=== PATIENT | male | born 1985 | race Caucasian/White ===

== ENCOUNTER 2016-08-15 09:16 | Emergency (ER) | payer BC, OTHER ==
[~2016-08-15 09:16] MED LIST: ACET50TA PO; ASPI325T5 PO; DOCU10ELUD PO; FLEX10TA2 PO; OXYC30TA4 PO; PERC7.5T12 PO
[2016-08-15] MEDS ORDERED: NS 1,000 ML IV ONE (09:45)
[2016-08-15] MEDS ORDERED: KETOROLAC 30 MG/ML VIAL (J1885) IV ONE (09:45)
[2016-08-15 09:52] LABS: BASO % 0.5 % (0.0-1.0); EOS # 0.2 K/mm3 (0.0-0.50); EOS % 2.2 % (0.0-3.0); LARGE UNSTAINED CELL # 0.1 K/mm3 (0.0-0.4); LARGE UNSTAINED CELL % 1.2 % (0.0-4.0); LYMPH # 1.5 K/mm3 (1.5-4.5); LYMPH % 20.3 % (24.0-44.0); MEAN CORPUSCULAR HEMOGLOBIN 31.1 pg (27.0-33.0); MEAN CORPUSCULAR VOLUME 88.8 fl (80.0-96.0); MONO # 0.4 K/mm3 (0.0-0.8); MONO % 4.8 % (0.0-5.0); NEUTROPHILS # 5.4 K/mm3 (1.8-7.7); NEUTROPHILS % 71.1 % (36.0-66.0); PLATELET COUNT, AUTOMATED 292 k/mm3 (150-450); RED CELL DISTRIBUTION WIDTH 12.8 % (11.5-14.5); WHITE BLOOD COUNT 7.6 K/mm3 (4.0-10.0)
[2016-08-15 10:12] LABS: ALBUMIN 3.5 GM/DL (3.2-5.2); ALBUMIN/GLOBULIN RATIO 0.95 (1.00-1.93); ALKALINE PHOSPHATASE 69 U/L (45-117); ALT/SGPT 85 U/L (12-78); ANION GAP 7 MEQ/L (8-16); AST/SGOT 33 U/L (15-37); BILIRUBIN,DIRECT 0.1 MG/DL (0.0-0.2); BILIRUBIN,TOTAL 0.7 MG/DL (0.2-1.0); BLOOD UREA NITROGEN 15 MG/DL (7-18); CARBON DIOXIDE LEVEL 26 MEQ/L (21-32); CHLORIDE LEVEL 108 MEQ/L (98-107); CREATININE FOR GFR 1.08 MG/DL (0.70-1.30); GLOMERULAR FILTRATION RATE > 60.0 (>60); GLUCOSE, FASTING 126 MG/DL (70-105); POTASSIUM SERUM 3.9 MEQ/L (3.5-5.1); SODIUM LEVEL 141 MEQ/L (136-145); TOTAL PROTEIN 7.2 GM/DL (6.4-8.2)
--- NOTE | 2016-08-15 10:53 | REP ---
CT abdomen pelvis without IV and oral contrast: There is a 5 mm calculus in the distal right ureter near the urinary bladder. There is mild right hydronephrosis. There are no right renal calculi. There are no renal or ureteral calculi on the left. There is no left hydronephrosis. There are no bladder calculi. The bladder is otherwise unremarkable. The visualized lung castillo are unremarkable. The unenhanced hepatic parenchyma is unremarkable. The gallbladder, pancreas and spleen are unremarkable. The adrenals, abdominal aorta, bowel and mesentery are unremarkable. Pelvis: The appendix has a normal appearance. The bladder is unremarkable. There is no adenopathy or ascites. The pelvic bowel loops are unremarkable. Impression: There is a 5 mm calculus in the distal right ureter near the bladder. There is moderate right hydronephrosis. Signed by Hair August MD 08/15/2016 10:44 A
[2016-08-15] MEDS ORDERED: ZOFR4TAB3 PO (11:24)
[2016-08-15] MEDS ORDERED: FLOM5CAP PO (11:24)
[2016-08-15] MEDS ORDERED: TAMSULOSIN 0.4 MG CAP PO ONE (11:30)
[2016-08-15 11:36] VITALS: BP 141/90
== END 2016-08-15 11:38 | disposition home or self-care (01) ==
LOC: M ED 09:59
DX: N20.1 Calculus of ureter (principal); Z88.7 Allergy status to serum and vaccine
CPT/HCPCS: 74176; 80048; 80076; 81001; 85025; 87086; 96361; 96374; 99284; J1885

== ENCOUNTER 2017-05-06 13:43 | Emergency (ER) | payer OTHER ==
[2017-05-06] MEDS: METOPROLOL TART 50 MG TAB PO ×2 (14:24)
[2017-05-06] MEDS: ASPIRIN 81 MG CHEW TABLET PO ×2 (14:25)
[2017-05-06] MEDS: NS 1,000 ML IV ×2 (14:25)
[2017-05-06] MEDS: MORPHINE 2 MG/ML 1ML SYRINGE (J2270) IV ×4 (14:25→15:20)
[2017-05-06 14:33] LABS: BASO % 0.3 % (0.0-1.0); EOS % 0.4 % (0.0-3.0); HEMATOCRIT 45.6 % (42.0-52.0); HEMOGLOBIN 16.3 g/dl (14.0-18.0); IMMATURE GRANULOCYTE % 0.4 % (0-3.0); LYMPH # 1.8 10^3/uL (1.5-4.5); LYMPH % 17.2 % (24.0-44.0); MEAN CORPUSCULAR HEMOGLOBIN 30.5 pg (27.0-33.0); MEAN CORPUSCULAR HGB CONC 35.7 g/dl (32.0-36.5); MEAN CORPUSCULAR VOLUME 85.2 fl (80.0-96.0); MONO # 0.8 10^3/uL (0.0-0.8); NEUTROPHILS # 7.7 10^3/uL (1.8-7.7); NEUTROPHILS % 73.7 % (36.0-66.0); PLATELET COUNT, AUTOMATED 335 10^3/uL (150-450); RED BLOOD COUNT 5.35 10^6/uL (4.30-6.10); RED CELL DISTRIBUTION WIDTH 12.7 % (11.5-14.5); WHITE BLOOD COUNT 10.5 10^3/uL (4.0-10.0)
[2017-05-06 14:48] LABS: INR 0.94; PROTHROMBIN TIME 12.7 SECONDS (12.4-14.5)
[2017-05-06 14:55] LABS: ALBUMIN 4.2 GM/DL (3.2-5.2); ALBUMIN/GLOBULIN RATIO 0.95 (1.00-1.93); ALKALINE PHOSPHATASE 85 U/L (45-117); ALT/SGPT 137 U/L (12-78); ANION GAP 8 MEQ/L (8-16); AST/SGOT 57 U/L (7-37); BILIRUBIN,DIRECT 0.2 MG/DL (0.0-0.2); BILIRUBIN,TOTAL 1.2 MG/DL (0.2-1.0); BLOOD UREA NITROGEN 13 MG/DL (7-18); CALCIUM LEVEL 9.5 MG/DL (8.5-10.1); CARBON DIOXIDE LEVEL 26 MEQ/L (21-32); CHLORIDE LEVEL 104 MEQ/L (98-107); CPK CREATINE PHOSPHOKINASE 157 U/L (39-308); FREE T4 1.06 NG/DL (0.76-1.46); GLOMERULAR FILTRATION RATE > 60.0 (>60); GLUCOSE, FASTING 103 MG/DL (70-100); LIPASE 134 U/L (73-393); POTASSIUM SERUM 3.5 MEQ/L (3.5-5.1); SODIUM LEVEL 138 MEQ/L (136-145); TOTAL PROTEIN 8.6 GM/DL (6.4-8.2); TROPONIN I < 0.02 NG/ML (< 0.10)
[2017-05-06 15:00] LABS: MB/CK RELATIVE INDEX 0.63 (< OR =4)
[2017-05-06 16:15] LABS: HEPATITIS B SURFACE ANTIGEN NEGATIVE (NEGATIVE)
[2017-05-06 16:42] LABS: HEPATITIS C VIRUS ABY INDEX 0.1 INDEX (<0.8)
[2017-05-06 16:43] LABS: HEPATITIS B CORE ANTIBODY IGM NEGATIVE (NEGATIVE)
[2017-05-06 16:44] LABS: HEPATITIS A ANTIBODY IGM NEGATIVE (NEGATIVE)
[2017-05-06 19:48] LABS: TROPONIN I < 0.02 NG/ML (< 0.10)
[2017-05-06 19:49] LABS: CPK CREATINE PHOSPHOKINASE 118 U/L (39-308); MB/CK RELATIVE INDEX 0.84 (< OR =4)
== END 2017-05-06 20:10 | disposition home or self-care (01) ==
LOC: M ED 13:43
DX: R07.89 Other chest pain (principal); R00.0 Tachycardia, unspecified; K21.9 Gastro-esophageal reflux disease without esophagitis; Z82.49 Family history of ischemic heart disease and other diseases of the circulatory system; Z88.7 Allergy status to serum and vaccine
CPT/HCPCS: J2770

== ENCOUNTER 2018-01-26 09:34 | Emergency (ER) | payer OTHER ==
[2018-01-26 10:04] LABS: BASO # 0.1 10^3/uL (0.0-0.2); BASO % 0.7 % (0.0-1.0); EOS # 0.1 10^3/uL (0.0-0.50); EOS % 0.8 % (0.0-3.0); HEMOGLOBIN 15.3 g/dl (13.5-17.5); IMMATURE GRANULOCYTE % 0.3 % (0-3.0); LYMPH # 1.6 10^3/uL (1.5-4.5); LYMPH % 22.1 % (24.0-44.0); MEAN CORPUSCULAR HEMOGLOBIN 30.4 pg (27.0-33.0); MEAN CORPUSCULAR HGB CONC 34.8 g/dl (32.0-36.5); MEAN CORPUSCULAR VOLUME 87.5 fl (80.0-96.0); MONO # 0.6 10^3/uL (0.0-0.8); MONO % 7.9 % (0.0-5.0); NEUTROPHILS # 4.9 10^3/uL (1.8-7.7); NEUTROPHILS % 68.2 % (36.0-66.0); PLATELET COUNT, AUTOMATED 325 10^3/uL (150-450); RED BLOOD COUNT 5.03 10^6/uL (4.30-6.10); RED CELL DISTRIBUTION WIDTH 13.2 % (11.5-14.5); WHITE BLOOD COUNT 7.2 10^3/uL (4.0-10.0)
[2018-01-26 10:18] LABS: INR 0.97
[2018-01-26] MEDS: NS 1,000 ML IV (10:42)
[2018-01-26] MEDS: PANTOPRAZOLE 40MG INJ (PROTONIX) (C9113) IV (10:42)
[2018-01-26] MEDS: GI COCKTAIL 50ML BTL(HYOSCYAMINE/MAALOX/LIDOCAINE VISCOUS)(1:3:1) PO (10:42)
[2018-01-26 10:45] LABS: ALBUMIN 3.7 GM/DL (3.2-5.2); ALBUMIN/GLOBULIN RATIO 1.09 (1.00-1.93); ALKALINE PHOSPHATASE 62 U/L (45-117); ALT/SGPT 105 U/L (12-78); ANION GAP 6 MEQ/L (8-16); AST/SGOT 46 U/L (7-37); BILIRUBIN,DIRECT 0.2 MG/DL (0.0-0.2); BILIRUBIN,TOTAL 0.8 MG/DL (0.2-1.0); BLOOD UREA NITROGEN 10 MG/DL (7-18); CALCIUM LEVEL 8.9 MG/DL (8.5-10.1); CARBON DIOXIDE LEVEL 29 MEQ/L (21-32); CHLORIDE LEVEL 106 MEQ/L (98-107); CPK CREATINE PHOSPHOKINASE 122 U/L (39-308); CREATININE FOR GFR 0.92 MG/DL (0.70-1.30); FREE T4 1.03 NG/DL (0.76-1.46); GLOMERULAR FILTRATION RATE > 60.0 (>60); GLUCOSE, FASTING 88 MG/DL (70-100); LIPASE 97 U/L (73-393); MB/CK RELATIVE INDEX 1.31 (< OR =4); POTASSIUM SERUM 4.1 MEQ/L (3.5-5.1); SODIUM LEVEL 141 MEQ/L (136-145); TOTAL PROTEIN 7.1 GM/DL (6.4-8.2); TROPONIN I < 0.02 NG/ML (< 0.10)
== END 2018-01-26 15:02 | disposition left against medical advice (07) ==
LOC: M ED 09:34
DX: R07.9 Chest pain, unspecified (principal); R11.0 Nausea; R10.9 Unspecified abdominal pain; Z79.899 Other long term (current) drug therapy; Z82.49 Family history of ischemic heart disease and other diseases of the circulatory system; Z88.7 Allergy status to serum and vaccine; Z91.048 Other nonmedicinal substance allergy status
CPT/HCPCS: C9113

== ENCOUNTER → 2018-09-09 | Outpatient (CLI) | payer OTHER ==
[~2018-09-09] MED LIST changes: +ACET500T15 PO; -ACET50TA PO; -DOCU10ELUD PO; +DOCU5LIQ PO; +FLOM0.4C39 PO; +GABA-843 PO; +IBUP-1114 PO; +MAPA500T17 PO; +PRED20TA PO; +PROT1TAB2 PO; +VALI5TAB PO; +ZOFR4TAB14 PO
== END ==
LOC: M OUTALCOH 07:54
PROVIDERS: ATTEND Psychiatry & Neurology Psychiatry
DX: Z03.89 Encounter for observation for other suspected diseases and conditions ruled out (principal)

== ENCOUNTER 2018-10-12 16:00 | Outpatient (RCR) | payer OTHER | END 2018-10-13 | LOC: M OUTALCOH 16:00 | PROVIDERS: ATTEND Psychiatry & Neurology Psychiatry | DX: F10.10 Alcohol abuse, uncomplicated (principal); F17.200 Nicotine dependence, unspecified, uncomplicated ==

== ENCOUNTER 2018-11-12 07:55 | Outpatient (RCR) | payer OTHER | END 2018-11-13 | LOC: M OUTALCOH 07:55 | PROVIDERS: ATTEND Psychiatry & Neurology Psychiatry | DX: F10.10 Alcohol abuse, uncomplicated (principal); F17.200 Nicotine dependence, unspecified, uncomplicated ==

== ENCOUNTER 2018-12-02 11:56 | Emergency (ER) | payer OTHER ==
[~2018-12-02] VITALS: Ht 170.2 cm; Wt 102.3 kg
[2018-12-02] MEDS ORDERED: GABA-843 PO (12:52)
[2018-12-02 12:57] VITALS: BP 135/86
[2018-12-02 13:15] LABS: BASO % 0.3 % (0.0-1.0); EOS # 0.1 10^3/uL (0.0-0.5); EOS % 1.1 % (0.0-3.0); HEMATOCRIT 41.5 % (42.0-52.0); HEMOGLOBIN 14.6 g/dl (13.5-17.5); LYMPH # 2.4 10^3/uL (1.5-5.0); LYMPH % 26.3 % (24.0-44.0); MEAN CORPUSCULAR HEMOGLOBIN 30.9 pg (27.0-33.0); MEAN CORPUSCULAR HGB CONC 35.2 g/dl (32.0-36.5); MEAN CORPUSCULAR VOLUME 87.9 fl (80.0-96.0); MONO # 0.7 10^3/uL (0.0-0.8); PLATELET COUNT, AUTOMATED 308 10^3/uL (150-450); RED BLOOD COUNT 4.72 10^6/uL (4.30-6.10); WHITE BLOOD COUNT 9.3 10^3/uL (4.0-10.0)
[2018-12-02 13:44] LABS: ALBUMIN 3.8 GM/DL (3.2-5.2); ALT/SGPT 53 U/L (12-78); BLOOD UREA NITROGEN 20 MG/DL (7-18); CALCIUM LEVEL 9.6 MG/DL (8.5-10.1); CARBON DIOXIDE LEVEL 25 MEQ/L (21-32); CHLORIDE LEVEL 108 MEQ/L (98-107); CREATININE FOR GFR 0.89 MG/DL (0.70-1.30); GLOMERULAR FILTRATION RATE > 60.0 (>60); GLUCOSE, FASTING 92 MG/DL (70-100); POTASSIUM SERUM 3.7 MEQ/L (3.5-5.1); SODIUM LEVEL 143 MEQ/L (136-145); TOTAL PROTEIN 6.9 GM/DL (6.4-8.2)
[2018-12-03 09:29] LABS: HEPATITIS B SURFACE ANTIBODY NEGATIVE (POSITIVE)
[2018-12-03 09:41] LABS: HEPATITIS B SURFACE ANTIGEN NEGATIVE (NEGATIVE)
[2018-12-03 10:08] LABS: HEPATITIS C VIRUS ABY INDEX 0.1 INDEX (<0.8)
== END 2018-12-02 16:58 | disposition home or self-care (01) ==
LOC: M ED 11:56
DX: S60.812A Abrasion of left wrist, initial encounter (principal); Y04.8XXA Assault by other bodily force, initial encounter; Y92.89 Other specified places as the place of occurrence of the external cause; Z88.7 Allergy status to serum and vaccine; Z91.048 Other nonmedicinal substance allergy status

== ENCOUNTER 2018-12-10 09:03 | Outpatient (RCR) | payer OTHER | END 2018-12-13 | LOC: M OUTALCOH 09:03 | PROVIDERS: ATTEND Psychiatry & Neurology Psychiatry | DX: F10.10 Alcohol abuse, uncomplicated (principal); F17.200 Nicotine dependence, unspecified, uncomplicated ==

== ENCOUNTER → 2019-04-28 | Outpatient (CLI) | payer OTHER ==
[~2019-04-28] MED LIST changes: +AZIT-12 PO
--- NOTE | 2019-04-28 18:32 | REP ---
Clinical: Shortness of breath and cough. Comparison: 01/26/2018. Findings: Mediastinum and cardiac silhouette are normal. No focal consolidation, effusion, or pneumothorax. Mild bronchitis cannot be excluded. Skeletal structures are intact. Impression: No focal consolidation. Electronically Signed by Casper Guzman MD 04/28/2019 06:24 P
== END ==
LOC: M RAD 17:37
PROVIDERS: ATTEND Emergency Medicine
DX: R05 Cough (principal); R06.02 Shortness of breath

== ENCOUNTER → 2019-10-31 | Outpatient (REF) | LOC: M EMP 12:12 | PROVIDERS: ATTEND Family Medicine | DX: Z02.89 Encounter for other administrative examinations (principal) ==

== ENCOUNTER → 2020-01-27 | Outpatient (CLI) | payer SELFPAY | LOC: M LABSMTC 12:58 | PROVIDERS: ATTEND Pediatrics | DX: Z20.828 Contact with and (suspected) exposure to other viral communicable diseases (principal) ==

== ENCOUNTER → 2020-03-13 | Outpatient (REF) | payer SELFPAY | LOC: EDSTATUS 11:05 → M LABSMTC 11:11 | PROVIDERS: ATTEND Pediatrics | DX: Z20.828 Contact with and (suspected) exposure to other viral communicable diseases (principal) ==

== ENCOUNTER 2020-06-16 10:38 | Emergency (ER) | payer OTHER, SELFPAY ==
[~2020-06-16] VITALS: Ht 170.2 cm; Wt 113.6 kg
[~2020-06-16 10:38] MED LIST changes: +GABA-282 PO; -GABA-843 PO
[2020-06-16] MEDS ORDERED: IBUP200T45 PO (10:56)
--- NOTE | 2020-06-16 11:51 | REP ---
INDICATION: pain/dec rom. COMPARISON: None. TECHNIQUE: Single AP view of the pelvis and AP and frog-leg views of the right hip. FINDINGS: AP pelvis: Mineralization is normal. The sacroiliac articulations are unremarkable. The right left hip articulations are unremarkable. There are no calcifications. No fracture or dislocation. Right hip AP and frogleg views: Mineralization and joint space are unremarkable. There is no fracture or dislocation. There is no flattening or deformity of the femoral head. There are no calcifications or foreign bodies. IMPRESSION: Negative AP pelvis. Negative AP and frog-leg views of the right hip. Depending on symptoms and clinical presentation consider follow-up MRI. <Electronically signed by Hair August > 06/16/20 [id number]
[2020-06-16] MEDS ORDERED: PRED20TA PO (12:02)
[2020-06-16 12:13] VITALS: BP 133/90
== END 2020-06-16 12:14 | disposition home or self-care (01) ==
LOC: M ED 10:38
DX: S76.011A Strain of muscle, fascia and tendon of right hip, initial encounter (principal); X58.XXXA Exposure to other specified factors, initial encounter; Y92.9 Unspecified place or not applicable; Y93.9 Activity, unspecified; Y99.9 Unspecified external cause status; Z88.7 Allergy status to serum and vaccine; Z91.89 Other specified personal risk factors, not elsewhere classified

== ENCOUNTER → 2020-11-15 | Outpatient (REF) ==
[~2020-11-15] MED LIST changes: +IBUP200T45 PO
== END ==
LOC: M EMP 10:20
PROVIDERS: ATTEND Family Medicine
DX: Z20.822 Contact with and (suspected) exposure to COVID-19 (principal)

== ENCOUNTER 2021-02-11 06:33 | Outpatient (RCR) ==
[~2021-02-11 06:33] MED LIST changes: -IBUP200T45 PO; +IBUP200T46 PO
== END 2021-02-11 15:00 | disposition home or self-care (01) ==
LOC: M EMP 06:33
PROVIDERS: ATTEND Pediatrics
DX: Z11.52 Encounter for screening for COVID-19 (principal)

== ENCOUNTER → 2021-02-23 | Outpatient (REF) | LOC: M LABSMTC 10:35 | PROVIDERS: ATTEND Family Medicine | DX: Z20.828 Contact with and (suspected) exposure to other viral communicable diseases (principal) ==

== ENCOUNTER → 2021-02-26 | Outpatient (REF) | LOC: M EMP 07:54 | PROVIDERS: ATTEND Family Medicine | DX: Z20.828 Contact with and (suspected) exposure to other viral communicable diseases (principal) ==

== ENCOUNTER 2021-07-13 16:47 | Emergency (ER) | payer OTHER ==
[~2021-07-13] VITALS: Ht 170.2 cm; Wt 113.6 kg
[2021-07-13] MEDS ORDERED: ONDANSETRON 4MG/2ML VIAL IV ONE (17:05)
[2021-07-13] MEDS ORDERED: NS 1,000 ML IV ONE ×2 (17:05→18:10)
[2021-07-13] MEDS ORDERED: PANTOPRAZOLE 40MG VIAL IV ONE (17:10)
[2021-07-13 17:25] LABS: BASO % 0.4 % (0.0-1.0); EOS % 0.1 % (0.0-3.0); HEMOGLOBIN 16.2 g/dl (13.5-17.5); LYMPH # 1.1 10^3/uL (1.5-5.0); LYMPH % 9.6 % (24.0-44.0); MEAN CORPUSCULAR HGB CONC 35.2 g/dl (32.0-36.5); MONO # 0.7 10^3/uL (0.0-0.8); MONO % 6.5 % (2.0-8.0); NEUTROPHILS # 9.4 10^3/uL (1.5-8.5); PLATELET COUNT, AUTOMATED 310 10^3/uL (150-450); RED BLOOD COUNT 5.23 10^6/uL (4.30-6.10); WHITE BLOOD COUNT 11.3 10^3/uL (4.0-10.0)
[2021-07-13] MEDS ORDERED: ISOVUE-370 76% 100ML VIAL As Ordered ONE (17:39)
[2021-07-13 17:57] LABS: ALBUMIN 3.6 GM/DL (3.2-5.2); BILIRUBIN,DIRECT 0.4 MG/DL (0.0-0.2); BILIRUBIN,TOTAL 1.7 MG/DL (0.2-1.0); TOTAL PROTEIN 7.6 GM/DL (6.4-8.2)
[2021-07-13] MEDS ORDERED: ONDA4TAB6 PO (21:09)
[2021-07-13] MEDS ORDERED: ONDANSETRON 4MG TAB PO ONE (21:15)
[2021-07-13 21:26] VITALS: BP 148/88
== END 2021-07-13 21:27 | disposition home or self-care (01) ==
LOC: M ED 16:47
DX: E86.0 Dehydration (principal); K52.9 Noninfective gastroenteritis and colitis, unspecified; R74.02 Elevation of levels of lactic acid dehydrogenase [LDH]; K76.0 Fatty (change of) liver, not elsewhere classified; M51.9 Unspecified thoracic, thoracolumbar and lumbosacral intervertebral disc disorder; Z87.442 Personal history of urinary calculi; Z88.7 Allergy status to serum and vaccine; Z91.048 Other nonmedicinal substance allergy status
CPT/HCPCS: 71046; 74177; 80047; 80076; 83605; 83690; 85025; 87040; 87077; 87486; 87581; 87633; 87798; 96361; 96374; 96375; 99284; C9113; J2405; Q9967

== ENCOUNTER 2021-08-05 11:44 | Emergency (ER) | payer BC, OTHER, SELFPAY ==
[~2021-08-05 11:44] MED LIST changes: +ONDA4TAB6 PO
[2021-08-05 12:20] LABS: APPEARANCE, URINE CLEAR (CLEAR); BACTERIA, URINE AUTO NEGATIVE (NEGATIVE); BILIRUBIN, URINE AUTO NEGATIVE (NEGATIVE); BLOOD, URINE BLOOD NEGATIVE (NEGATIVE); COLOR, URINE YELLOW (YELLOW); GLUCOSE, URINE (UA) AUTO NEGATIVE (NEGATIVE); KETONE, URINE AUTO NEGATIVE (NEGATIVE); LEUKOCYTE ESTERASE, URINE AUTO NEGATIVE (NEGATIVE); MUCUS, URINE SMALL (NEGATIVE); NITRITE, URINE AUTO NEGATIVE (NEGATIVE); PROTEIN, URINE AUTO NEGATIVE (NEGATIVE); RBC, URINE AUTO 0 /HPF (0-3); SPECIFIC GRAVITY URINE AUTO 1.013 (1.002-1.035); SQUAMOUS EPITHELIAL CELL UR AU 0 /HPF (0-6); UROBILINOGEN, URINE AUTO 0.2 mg/dL (0.0-2.0); WBC, URINE AUTO 2 /HPF (0-3)
[2021-08-05 12:26] LABS: BASO # 0.1 10^3/uL (0.0-0.2); BASO % 0.6 % (0.0-1.0); EOS # 0.3 10^3/uL (0.0-0.5); EOS % 2.8 % (0.0-3.0); HEMATOCRIT 43.7 % (42.0-52.0); LYMPH % 19.1 % (24.0-44.0); MEAN CORPUSCULAR HGB CONC 34.3 g/dl (32.0-36.5); MEAN CORPUSCULAR VOLUME 90.3 fl (80.0-96.0); MONO # 0.7 10^3/uL (0.0-0.8); MONO % 6.8 % (2.0-8.0); NEUTROPHILS # 7.3 10^3/uL (1.5-8.5); NEUTROPHILS % 70.2 % (36.0-66.0); PLATELET COUNT, AUTOMATED 265 10^3/uL (150-450); RED BLOOD COUNT 4.84 10^6/uL (4.30-6.10); WHITE BLOOD COUNT 10.4 10^3/uL (4.0-10.0)
[2021-08-05 13:05] LABS: ALBUMIN 3.6 GM/DL (3.2-5.2); ALT/SGPT 118 U/L (12-78); BILIRUBIN,TOTAL 1.5 MG/DL (0.2-1.0); BLOOD UREA NITROGEN 11 MG/DL (7-18); CALCIUM LEVEL 8.8 MG/DL (8.5-10.1); CARBON DIOXIDE LEVEL 28 MEQ/L (21-32); CHLORIDE LEVEL 104 MEQ/L (98-107); CREATININE FOR GFR 0.96 MG/DL (0.70-1.30); FREE T4 1.19 NG/DL (0.76-1.46); GLOMERULAR FILTRATION RATE > 60.0 (>60); GLUCOSE, FASTING 147 MG/DL (70-100); POTASSIUM SERUM 3.9 MEQ/L (3.5-5.1); SODIUM LEVEL 139 MEQ/L (136-145); TOTAL PROTEIN 7.5 GM/DL (6.4-8.2)
[2021-08-05] MEDS ORDERED: hydroCHLOROthiazide 12.5 MG CAPSULE PO ONE (14:05)
[2021-08-05] MEDS ORDERED: LISI10TA24 PO (14:42)
[2021-08-05 16:42] VITALS: BP 174/98
== END 2021-08-05 16:43 | disposition home or self-care (01) ==
LOC: M ED 11:44
DX: I10 Essential (primary) hypertension (principal); Z88.7 Allergy status to serum and vaccine; Z91.89 Other specified personal risk factors, not elsewhere classified

== ENCOUNTER 2021-09-03 08:25 | Outpatient (REF) ==
[~2021-09-03 08:25] MED LIST changes: +LISI10TA24 PO
== END 2021-09-03 11:00 ==
LOC: M EMP 08:25
PROVIDERS: ATTEND Family Medicine
DX: Z20.822 Contact with and (suspected) exposure to COVID-19 (principal)

== ENCOUNTER → 2021-10-17 | Outpatient (CLI) | payer BC | LOC: M SLEEP HO 14:02 | PROVIDERS: ATTEND Family Medicine | DX: G47.10 Hypersomnia, unspecified (principal); R06.83 Snoring; R53.83 Other fatigue ==

== ENCOUNTER → 2021-11-04 | Outpatient (CLI) | payer BC ==
[2021-11-04 10:34] LABS: BASO # 0.1 10^3/uL (0.0-0.2); BASO % 0.9 % (0.0-1.0); EOS # 0.2 10^3/uL (0.0-0.5); EOS % 1.8 % (0.0-3.0); HEMATOCRIT 45.7 % (42.0-52.0); LYMPH # 2.3 10^3/uL (1.5-5.0); MEAN CORPUSCULAR HEMOGLOBIN 31.8 pg (27.0-33.0); MEAN CORPUSCULAR VOLUME 90.9 fl (80.0-96.0); MONO # 0.8 10^3/uL (0.0-0.8); NEUTROPHILS # 5.8 10^3/uL (1.5-8.5); NEUTROPHILS % 62.8 % (36.0-66.0); PLATELET COUNT, AUTOMATED 268 10^3/uL (150-450); RED BLOOD COUNT 5.03 10^6/uL (4.30-6.10); WHITE BLOOD COUNT 9.2 10^3/uL (4.0-10.0)
[2021-11-04 11:03] LABS: HEMOGLOBIN A1c 10.5 %
[2021-11-04 11:40] LABS: ALT/SGPT 142 U/L (12-78); BILIRUBIN,TOTAL 1.7 MG/DL (0.2-1.0); BLOOD UREA NITROGEN 16 MG/DL (7-18); CALCIUM LEVEL 9.8 MG/DL (8.5-10.1); CARBON DIOXIDE LEVEL 25 MEQ/L (21-32); CHLORIDE LEVEL 97 MEQ/L (98-107); CHOLESTEROL LEVEL 183 MG/DL (<200); CHOLESTEROL RISK RATIO 4.692 (<5); CREATININE FOR GFR 1.02 MG/DL (0.70-1.30); FREE T4 1.24 NG/DL (0.76-1.46); GLOMERULAR FILTRATION RATE > 60.0 (>60); GLUCOSE, FASTING 325 MG/DL (70-100); HDL CHOLESTEROL 39 MG/DL (>40); LDL CHOLESTEROL 117 MG/DL (<100); NON-HDL-C 144 MG/DL; SODIUM LEVEL 130 MEQ/L (136-145); TOTAL PROTEIN 8.1 GM/DL (6.4-8.2); TRIGLYCERIDES LEVEL 133 MG/DL (<150)
== END ==
LOC: M LAB 09:43
PROVIDERS: ATTEND Family Medicine
DX: Z13.29 Encounter for screening for other suspected endocrine disorder (principal); Z13.220 Encounter for screening for lipoid disorders

== ENCOUNTER → 2022-05-13 | Outpatient (CLI) | payer BC ==
[2022-05-13 14:07] LABS: BASO # 0.1 10^3/uL (0.0-0.2); BASO % 0.6 % (0.0-1.0); EOS # 0.2 10^3/uL (0.0-0.5); EOS % 1.4 % (0.0-3.0); HEMATOCRIT 46.7 % (42.0-52.0); HEMOGLOBIN 15.9 g/dl (13.5-17.5); LYMPH # 2.4 10^3/uL (1.5-5.0); LYMPH % 22.4 % (24.0-44.0); MEAN CORPUSCULAR HEMOGLOBIN 30.6 pg (27.0-33.0); MEAN CORPUSCULAR VOLUME 89.8 fl (80.0-96.0); MONO # 0.8 10^3/uL (0.0-0.8); MONO % 7.7 % (2.0-8.0); NEUTROPHILS # 7.4 10^3/uL (1.5-8.5); NEUTROPHILS % 67.6 % (36.0-66.0); PLATELET COUNT, AUTOMATED 321 10^3/uL (150-450); WHITE BLOOD COUNT 10.9 10^3/uL (4.0-10.0)
[2022-05-13 14:35] LABS: MAU/CREAT RATIO 23.9 MCG/MG (0.0-30.0)
[2022-05-13 14:41] LABS: ALBUMIN 4.1 G/DL (3.2-5.2); ALKALINE PHOSPHATASE 56 U/L (46-116); ALT/SGPT 113 U/L (7.0-40); AST/SGOT 57 U/L (<34); BILIRUBIN,DIRECT 0.5 MG/DL (<0.4); BLOOD UREA NITROGEN 13 MG/DL (9-23); CALCIUM LEVEL 10.6 MG/DL (8.5-10.1); CARBON DIOXIDE LEVEL 25 MMOL/L (20-31); CHLORIDE LEVEL 101 MMOL/L (98-107); CREATININE FOR GFR 0.83 MG/DL (0.70-1.30); GLOMERULAR FILTRATION RATE > 60.0 (>60); GLUCOSE, FASTING 88 MG/DL (60-100); POTASSIUM SERUM 3.9 MMOL/L (3.5-5.1); SODIUM LEVEL 137 MMOL/L (136-145); TOTAL PROTEIN 7.7 G/DL (5.7-8.2)
[2022-05-13 15:31] LABS: HEMOGLOBIN A1c 5.1 % (4.0-6.0)
== END ==
LOC: M LAB 12:07
PROVIDERS: ATTEND Physician Assistant
DX: R74.01 Elevation of levels of liver transaminase levels (principal); E11.65 Type 2 diabetes mellitus with hyperglycemia

== ENCOUNTER → 2022-05-26 | Outpatient (REF) | LOC: M EMP 12:55 | PROVIDERS: ATTEND Family Medicine | DX: Z11.52 Encounter for screening for COVID-19 (principal) ==

== ENCOUNTER → 2022-06-30 | Outpatient (REF) | LOC: M EMP 10:48 | PROVIDERS: ATTEND Family Medicine | DX: Z20.822 Contact with and (suspected) exposure to COVID-19 (principal); Z11.52 Encounter for screening for COVID-19 ==

== ENCOUNTER → 2022-07-25 | Outpatient (CLI) | payer BC | LOC: M LAB 16:27 | PROVIDERS: ATTEND Emergency Medicine | DX: Z20.2 Contact with and (suspected) exposure to infections with a predominantly sexual mode of transmission (principal) ==

== ENCOUNTER → 2022-11-17 | Outpatient (CLI) | payer BC ==
[2022-11-17 13:52] LABS: HEMOGLOBIN A1c 5.4 % (4.0-6.0)
[2022-11-17 14:01] LABS: ALBUMIN 3.8 G/DL (3.2-5.2); ALKALINE PHOSPHATASE 58 U/L (46-116); ALT/SGPT 105 U/L (7.0-40); AST/SGOT 52 U/L (<34); BILIRUBIN,DIRECT 0.7 MG/DL (<0.4); BLOOD UREA NITROGEN 13 MG/DL (9-23); CALCIUM LEVEL 9.3 MG/DL (8.5-10.1); CARBON DIOXIDE LEVEL 26 MMOL/L (20-31); CHLORIDE LEVEL 101 MMOL/L (98-107); CREATININE FOR GFR 0.93 MG/DL (0.70-1.30); GLOMERULAR FILTRATION RATE > 60.0 (>60); GLUCOSE, FASTING 90 MG/DL (60-100); POTASSIUM SERUM 3.8 MMOL/L (3.5-5.1); SODIUM LEVEL 136 MMOL/L (136-145); TOTAL PROTEIN 7.4 G/DL (5.7-8.2)
== END ==
LOC: M RAD 12:16
PROVIDERS: ATTEND Physician Assistant
DX: M50.00 Cervical disc disorder with myelopathy, unspecified cervical region (principal); E11.9 Type 2 diabetes mellitus without complications; R74.01 Elevation of levels of liver transaminase levels; M47.812 Spondylosis without myelopathy or radiculopathy, cervical region

== ENCOUNTER 2023-01-21 18:42 | Emergency (ER) | payer BC ==
[~2023-01-21] VITALS: Ht 167.6 cm; Wt 121.6 kg
[2023-01-21 18:42] VITALS: TEMP 97.8
[2023-01-21] MEDS ORDERED: LYRI150C PO (18:50)
[2023-01-21 19:29] LABS: BASO # 0.1 10^3/uL (0.0-0.2); BASO % 0.6 % (0.0-1.0); EOS # 0.2 10^3/uL (0.0-0.5); EOS % 1.9 % (0.0-3.0); HEMATOCRIT 43.4 % (42.0-52.0); HEMOGLOBIN 15.1 g/dl (13.5-17.5); LYMPH # 2.8 10^3/uL (1.5-5.0); LYMPH % 33.1 % (24.0-44.0); MEAN CORPUSCULAR HEMOGLOBIN 31.5 pg (27.0-33.0); MEAN CORPUSCULAR HGB CONC 34.8 g/dl (32.0-36.5); MEAN CORPUSCULAR VOLUME 90.4 fl (80.0-96.0); MONO # 0.8 10^3/uL (0.0-0.8); MONO % 9.1 % (2.0-8.0); NEUTROPHILS # 4.7 10^3/uL (1.5-8.5); NEUTROPHILS % 54.8 % (36.0-66.0); PLATELET COUNT, AUTOMATED 322 10^3/uL (150-450); WHITE BLOOD COUNT 8.6 10^3/uL (4.0-10.0)
[2023-01-21 19:41] LABS: INR 1.02; PROTHROMBIN TIME 13.1 SECONDS (12.5-14.5)
[2023-01-21 19:57] LABS: CK-MB VALUE MASS 1.1 NG/ML (<3.6)
[2023-01-21 19:58] LABS: ALBUMIN 3.4 G/DL (3.2-5.2); BILIRUBIN,DIRECT 0.3 MG/DL (<0.4); BILIRUBIN,TOTAL 0.9 MG/DL (0.3-1.2); MB/CK RELATIVE INDEX 0.41 (< OR =4)
[2023-01-21] MEDS ORDERED: methylPREDNISolone 40MG 1ML VIAL IV ONE (20:15)
[2023-01-21] MEDS ORDERED: IPRATROPIUM 0.5MG/ALBUTEROL 2.5MG INH SOL UD 3ML (DUONEB) NEB ONE (20:15)
[2023-01-21 20:39] LABS: CK-MB VALUE MASS 1.3 NG/ML (<3.6); MB/CK RELATIVE INDEX 0.52 (< OR =4)
[2023-01-21 21:15] VITALS: BP 136/83; O2SAT 95
[2023-01-21] MEDS ORDERED: CEFD300C42 PO (22:09)
[2023-01-21] MEDS ORDERED: PRED20TA PO (22:09)
[2023-01-21] MEDS ORDERED: CEFDINIR 300 MG CAP (OMNICEF) PO ONE (22:10)
[2023-01-21] MEDS ORDERED: ALBUTEROL 90 MCG/ACT 8GM HFA INHALER INH ONE (22:10)
== END 2023-01-21 22:22 | disposition home or self-care (01) ==
LOC: M ED 18:42
DX: J40 Bronchitis, not specified as acute or chronic (principal); E11.9 Type 2 diabetes mellitus without complications; I10 Essential (primary) hypertension; F17.200 Nicotine dependence, unspecified, uncomplicated; Z88.7 Allergy status to serum and vaccine; Z91.048 Other nonmedicinal substance allergy status; Z79.2 Long term (current) use of antibiotics; Z79.52 Long term (current) use of systemic steroids; Z79.899 Other long term (current) drug therapy
CPT/HCPCS: 71045; 80047; 80076; 82550; 82553; 83690; 84484; 85025; 85610; 87486; 87581; 87633; 87798; 93005; 93041; 94760; 96374; 99285; J2920

== ENCOUNTER 2023-07-09 11:19 | Emergency (ER) | payer OTHER ==
[~2023-07-09 11:19] MED LIST changes: +CEFD1CAP9 PO; +LYRI150C PO
[2023-07-09] MEDS ORDERED: SEMA0.257 (11:25)
[2023-07-09] MEDS ORDERED: ERGO500029 (11:25)
[2023-07-09] MEDS ORDERED: METH-1164 (11:25)
[2023-07-09 11:56] LABS: BASO # 0.1 10^3/uL (0.0-0.2); BASO % 0.7 % (0.0-1.0); EOS # 0.1 10^3/uL (0.0-0.5); EOS % 1.2 % (0.0-3.0); HEMATOCRIT 44.8 % (42.0-52.0); HEMOGLOBIN 15.7 g/dl (13.5-17.5); LYMPH # 2.2 10^3/uL (1.5-5.0); LYMPH % 21.8 % (24.0-44.0); MEAN CORPUSCULAR HEMOGLOBIN 31.5 pg (27.0-33.0); MEAN CORPUSCULAR VOLUME 89.8 fl (80.0-96.0); MONO # 0.8 10^3/uL (0.0-0.8); MONO % 7.7 % (2.0-8.0); NEUTROPHILS # 6.7 10^3/uL (1.5-8.5); NEUTROPHILS % 68.2 % (36.0-66.0); PLATELET COUNT, AUTOMATED 311 10^3/uL (150-450); RED BLOOD COUNT 4.99 10^6/uL (4.30-6.10); WHITE BLOOD COUNT 9.8 10^3/uL (4.0-10.0)
[2023-07-09 12:21] LABS: BLOOD UREA NITROGEN 20 MG/DL (9-23); CALCIUM LEVEL 10.1 MG/DL (8.5-10.1); CARBON DIOXIDE LEVEL 27 MMOL/L (20-31); CHLORIDE LEVEL 104 MMOL/L (98-107); CREATININE FOR GFR 0.88 MG/DL (0.70-1.30); GLOMERULAR FILTRATION RATE > 60.0 (>60); GLUCOSE, FASTING 117 MG/DL (60-100); POTASSIUM SERUM 4.2 MMOL/L (3.5-5.1); SODIUM LEVEL 139 MMOL/L (136-145)
[2023-07-09] MEDS: KETOROLAC 30 MG/ML 1ML VIAL IV ONE (12:26)
[2023-07-09] MEDS ORDERED: GABA-284 PO (13:48)
[2023-07-09] MEDS ORDERED: PRED20TA PO (13:50)
[2023-07-09 13:52] VITALS: TEMP 98.4; O2SAT 96
[2023-07-09 14:00] VITALS: BP 154/92
== END 2023-07-09 14:01 | disposition home or self-care (01) ==
LOC: M ED 11:19
DX: M54.12 Radiculopathy, cervical region (principal); I10 Essential (primary) hypertension; Z79.899 Other long term (current) drug therapy; Z88.7 Allergy status to serum and vaccine; Z91.89 Other specified personal risk factors, not elsewhere classified
CPT/HCPCS: 72125; 72141; 73030; 73080; 80048; 85025; 96374; 99284; J1885

== ENCOUNTER 2023-10-15 10:50 | Emergency (ER) | payer BC, OTHER ==
[~2023-10-15] VITALS: Ht 170.2 cm; Wt 122.8 kg
[~2023-10-15 10:50] MED LIST changes: +ERGO500029; +GABA-284 PO; +METH-1164; +ONDA-282 PO; -ONDA4TAB6 PO; +SEMA0.257
[2023-10-15] MEDS ORDERED: LISI10TA24 (10:59)
[2023-10-15] MEDS ORDERED: ISOVUE-370 76% 100ML VIAL As Ordered ONE (11:32)
[2023-10-15] MEDS: ASPIRIN 81MG CHEW TABLET PO ONE (11:33)
[2023-10-15] MEDS: MAALOX 30 ML SUSP *UDC PO ONE (11:34)
[2023-10-15 11:40] LABS: BASO # 0.1 10^3/uL (0.0-0.2); BASO % 0.6 % (0.0-1.0); EOS # 0.2 10^3/uL (0.0-0.5); EOS % 1.3 % (0.0-3.0); HEMATOCRIT 44.3 % (42.0-52.0); HEMOGLOBIN 15.7 g/dl (13.5-17.5); LYMPH # 2.4 10^3/uL (1.5-5.0); LYMPH % 21.2 % (24.0-44.0); MEAN CORPUSCULAR HEMOGLOBIN 32.2 pg (27.0-33.0); MEAN CORPUSCULAR HGB CONC 35.4 g/dl (32.0-36.5); MEAN CORPUSCULAR VOLUME 90.8 fl (80.0-96.0); MONO # 0.8 10^3/uL (0.0-0.8); MONO % 7.2 % (2.0-8.0); NEUTROPHILS % 69.4 % (36.0-66.0); PLATELET COUNT, AUTOMATED 301 10^3/uL (150-450); RED BLOOD COUNT 4.88 10^6/uL (4.30-6.10); WHITE BLOOD COUNT 11.5 10^3/uL (4.0-10.0)
[2023-10-15 11:56] LABS: CK-MB VALUE MASS 1.8 NG/ML (<3.6)
[2023-10-15 11:57] LABS: INR 1.06; PROTHROMBIN TIME 13.5 SECONDS (12.5-14.5)
[2023-10-15 11:58] LABS: ALBUMIN 3.8 G/DL (3.2-5.2); BILIRUBIN,DIRECT 0.4 MG/DL (<0.4); BILIRUBIN,TOTAL 1.3 MG/DL (0.3-1.2); MB/CK RELATIVE INDEX 0.74 (< OR =4); TOTAL PROTEIN 7.1 G/DL (5.7-8.2)
[2023-10-15 13:21] LABS: CK-MB VALUE MASS 1.7 NG/ML (<3.6)
[2023-10-15 13:23] LABS: MB/CK RELATIVE INDEX 1.14 (< OR =4)
[2023-10-15 14:40] VITALS: BP 148/83; TEMP 98; O2SAT 96
== END 2023-10-15 15:08 | disposition home or self-care (01) ==
LOC: M ED 10:50
DX: R91.1 Solitary pulmonary nodule (principal); R07.9 Chest pain, unspecified; R94.5 Abnormal results of liver function studies; K76.0 Fatty (change of) liver, not elsewhere classified; N20.0 Calculus of kidney; E11.9 Type 2 diabetes mellitus without complications; I10 Essential (primary) hypertension; Z88.7 Allergy status to serum and vaccine
CPT/HCPCS: 71045; 71275; 80047; 80076; 82550; 82553; 83690; 84484; 85025; 85610; 93005; 93041; 94760; 99285; Q9967

== ENCOUNTER → 2023-11-13 | Outpatient (CLI) | payer BC ==
[~2023-11-13] MED LIST changes: +ERGO500029 PO; +LISI10TA24; +METH-1164 PO; +PERM5CRE9 EXT; +SEMA1PEN2 SQ
== END ==
LOC: M RAD 11:02
PROVIDERS: ATTEND Physician Assistant
DX: N20.0 Calculus of kidney (principal); R16.0 Hepatomegaly, not elsewhere classified; K40.90 Unilateral inguinal hernia, without obstruction or gangrene, not specified as recurrent

== ENCOUNTER → 2023-11-26 | Outpatient (REF) | payer BC ==
[~2023-11-26] MED LIST changes: -ERGO500029 PO; -METH-1164 PO; -PERM5CRE9 EXT; -SEMA1PEN2 SQ
== END ==
LOC: M LAB REF 14:18
PROVIDERS: ATTEND Physician Assistant
DX: E11.9 Type 2 diabetes mellitus without complications (principal)

== ENCOUNTER → 2023-11-26 | Outpatient (CLI) | payer BC ==
[2023-11-26 17:06] LABS: HEMATOCRIT 45.6 % (42.0-52.0); HEMOGLOBIN 15.9 g/dl (13.5-17.5); MEAN CORPUSCULAR HEMOGLOBIN 31.5 pg (27.0-33.0); MEAN CORPUSCULAR HGB CONC 34.9 g/dl (32.0-36.5); MEAN CORPUSCULAR VOLUME 90.3 fl (80.0-96.0); PLATELET COUNT, AUTOMATED 317 10^3/uL (150-450); RED BLOOD COUNT 5.05 10^6/uL (4.30-6.10); WHITE BLOOD COUNT 11.3 10^3/uL (4.0-10.0)
[2023-11-26 17:08] LABS: BLOOD UREA NITROGEN 15 MG/DL (9-23); CALCIUM LEVEL 9.6 MG/DL (8.5-10.1); CARBON DIOXIDE LEVEL 27 MMOL/L (20-31); CHLORIDE LEVEL 104 MMOL/L (98-107); CREATININE FOR GFR 0.99 MG/DL (0.70-1.30); GLOMERULAR FILTRATION RATE > 60.0 (>60); GLUCOSE, FASTING 135 MG/DL (60-100); POTASSIUM SERUM 3.9 MMOL/L (3.5-5.1); SODIUM LEVEL 136 MMOL/L (136-145)
== END ==
LOC: M RAD 09:37
PROVIDERS: ATTEND Physician Assistant
DX: Z01.818 Encounter for other preprocedural examination (principal)

== ENCOUNTER → 2023-12-03 | Day surgery (SDC) | payer BC ==
[~2023-12-03] VITALS: Ht 170.2 cm; Wt 113.4 kg
[~2023-12-03] MED LIST changes: +ERGO500029 PO; +METH-1164 PO; +PERM5CRE9 EXT; +SEMA1PEN2 SQ; +ceFAZolin SOD 2 GM in IV 1 EA IV ONE
== END | disposition home or self-care (01) ==
LOC: M SDC 07:48
PROVIDERS: ATTEND Urology
DX: N20.0 Calculus of kidney (principal); Z53.8 Procedure and treatment not carried out for other reasons

== ENCOUNTER 2023-12-31 08:29 | Day surgery (SDC) | payer BC ==
[~2023-12-31] VITALS: Ht 170.2 cm; Wt 121.6 kg
[~2023-12-31 08:29] MED LIST changes: +GABA-1172 PO; -GABA-282 PO; -ceFAZolin SOD 2 GM in IV 1 EA IV ONE
[2023-12-31] MEDS ORDERED: LR 1,000 ML IV SCH ×2 (09:00→11:30)
[2023-12-31] MEDS ORDERED: fentaNYL 100 MCG/2 ML INJECTION As Ordered ONE (09:50)
[2023-12-31] MEDS ORDERED: MIDAZOLAM INJ 2MG/2ML VIAL As Ordered ONE (09:50)
[2023-12-31] MEDS ORDERED: propofoL 200 MG/20 ML VIAL As Ordered ONE (09:51)
[2023-12-31] MEDS ORDERED: ACETAMINOPHEN 1000MG 100ML IV BAG As Ordered ONE (09:51)
[2023-12-31] MEDS ORDERED: LIDOCAINE 2% 100MG/5ML SDV (FOR ANES.) As Ordered ONE (09:51)
[2023-12-31] MEDS ORDERED: ONDANSETRON 4MG 2ML VIAL As Ordered ONE (09:51)
[2023-12-31] MEDS ORDERED: MINI IV ONE (10:00)
[2023-12-31] MEDS ORDERED: DEXTROSE 5% IV ONE (10:00)
[2023-12-31] MEDS ORDERED: ceFAZolin SOD 2 GM in IV 1 EA IV ONE (10:00)
[2023-12-31] MEDS ORDERED: ADV IV ONE (10:00)
[2023-12-31] MEDS ORDERED: CEFAZOLIN SOD IV ONE (10:00)
[2023-12-31] MEDS: ceFAZolin SOD 2 GM in IV 1 EA IV ONE (10:05)
[2023-12-31] MEDS: LIDOCAINE 1% SDV 30ML VIAL As Ordered ONE (10:42)
[2023-12-31] MEDS ORDERED: FLOM0.4C39 PO (10:54)
[2023-12-31] MEDS ORDERED: OXYC1TAB23 PO (10:54)
[2023-12-31] MEDS ORDERED: ONDANSETRON 4MG 2ML VIAL IV PRN (11:30)
[2023-12-31] MEDS ORDERED: fentaNYL 100 MCG/2 ML INJECTION IV PRN (11:30)
[2023-12-31] MEDS ORDERED: HYDROMORPHONE HCL 0.5 MG/ 0.5 ML SYRINGE IV PRN (11:30)
[2023-12-31] MEDS: oxyCODONE 5MG TAB PO PRN (11:50)
[2023-12-31 12:00] VITALS: BP 135/62; TEMP 97.5; O2SAT 95
== END 2023-12-31 12:26 | disposition home or self-care (01) ==
LOC: M SDC 08:29
PROVIDERS: ATTEND Urology
DX: N20.0 Calculus of kidney (principal); Z30.2 Encounter for sterilization; I10 Essential (primary) hypertension; E11.9 Type 2 diabetes mellitus without complications; K76.0 Fatty (change of) liver, not elsewhere classified; K21.9 Gastro-esophageal reflux disease without esophagitis; Z88.7 Allergy status to serum and vaccine; Z79.899 Other long term (current) drug therapy
CPT/HCPCS: 50590; 55250; 74018; 88302; J0131; J0665; J0690; J1100; J2250; J2405; J3010

== ENCOUNTER → 2024-01-05 | Outpatient (CLI) | payer BC ==
[~2024-01-05] MED LIST changes: +OXYC1TAB23 PO
== END ==
LOC: M PLAIMG 08:57
PROVIDERS: ATTEND Urology
DX: N20.0 Calculus of kidney (principal); K76.0 Fatty (change of) liver, not elsewhere classified; N13.1 Hydronephrosis with ureteral stricture, not elsewhere classified

== ENCOUNTER → 2024-01-29 | Outpatient (REF) | payer BC | LOC: M SMT 16:53 | PROVIDERS: ATTEND Physician Assistant | DX: N20.0 Calculus of kidney (principal) ==